=== PATIENT | female | born 1955 | race Caucasian/White ===

== ENCOUNTER → 2016-11-08 | Outpatient (CLI) | payer OTHER ==
[~2016-11-08] MED LIST: CLIMARA TD; PROMETRIUM PO
== END ==
LOC: RAD 01:06
DX: Z12.31 Encounter for screening mammogram for malignant neoplasm of breast (principal)

== ENCOUNTER → 2019-07-04 | Outpatient (CLI) | payer OTHER | LOC: RAD 01:57 | DX: Z12.31 Encounter for screening mammogram for malignant neoplasm of breast (principal) ==

== ENCOUNTER → 2020-11-27 | Outpatient (CLI) | payer OTHER | LOC: BC 11-24 08:41 | DX: Z12.31 Encounter for screening mammogram for malignant neoplasm of breast (principal) ==